=== PATIENT | male | born 1960 | race Caucasian/White ===

== ENCOUNTER 2022-06-18 08:43 | Day surgery (SDC) | payer OTHER ==
[2022-06-13 11:39] LABS: BASOPHILS % (AUTO) 0.6 % (0-1); LYMPHOCYTES # (AUTO) 1.8 X10'3 (1.1-4.8); LYMPHOCYTES % (AUTO) 34.8 % (21-51); MEAN CORPUSCULAR HEMOGLOBIN 31.2 PG (27.0-31.0); MEAN CORPUSCULAR HGB CONC 34.1 g/dL (33.0-36.5); MEAN CORPUSCULAR VOLUME 91.6 FL (78-98); MEAN PLATELET VOLUME 8.9 FL (7.4-10.4); MONOCYTES # (AUTO) 0.7 X10'3 (0-0.9); MONOCYTES % (AUTO) 12.9 % (2-12); NEUTROPHILS # (AUTO) 2.6 X10'3 (1.8-7.7); NEUTROPHILS % (AUTO) 50.7 % (42-75); PRE OP HEMOGLOBIN 14.3 g/dL (14.0-17.9); PRE OP PLATELET COUNT 247 X10'3 (140-440); RED BLOOD COUNT 4.59 X10'6 (4.70-6.10); RED CELL DISTRIBUTION WIDTH 14.3 % (11.5-14.5)
[2022-06-13 11:52] LABS: ALBUMIN 3.6 G/DL (3.4-5.0); ALBUMIN/GLOBULIN RATIO 0.9 (1.1-1.5); ALKALINE PHOSPHATASE 69 IU/L (46-116); BLOOD UREA NITROGEN 8 MG/DL (7-18); BUN/CREATININE RATIO 9.3 (5.4-32.0); CALCIUM 9.2 MG/DL (8.5-10.1); CHLORIDE 105 MMOL/L (99-107); CREATININE 0.86 MG/DL (0.60-1.10); PRE OP ALT 29 U/L (30-65); PRE OP ANION GAP 10 (8-16); PRE OP AST 17 U/L (10-37); PRE OP BILIRUB, TOTAL 0.4 MG/DL (0.0-1.0); PRE OP GLUCOSE 83 MG/DL (70-104); PRE OP POTASSIUM 3.8 MMOL/L (3.4-5.1); PRE OP SODIUM 141 MMOL/L (135-145); TOTAL CARBON DIOXIDE 25.6 MMOL/L (24-32); TOTAL PROTEIN 7.7 G/DL (6.4-8.2); eGFR 90 ML/MIN
[2022-06-18] VITALS (16 sets, daily range): BP systolic 110–134; BP diastolic 80–98
[~2022-06-18] VITALS: Ht 172.7 cm; Wt 95.6 kg
[~2022-06-18 08:43] MED LIST: ROPI0.2540 PO; ceFAZolin inj. 2,000 MG in dextrose 5%-water 100 ML IV ONE; famotidine 20mg tablet PO ONE; meperidine/PF 25mg/ml syringe IV PRN; morphine 2 MG/ML inj. syringe IV PRN; morphine 4 MG/ML inj SYRINge IV PRN; ondansetron/PF 4mg/2ml inj IV PRN; proCHLORperazine 10 MG/2 ml inj IV PRN; ringers solution, lacted 1,000 ML IV SCH
--- NOTE | 2022-06-18 09:00 | NUR ---
PT PREPARED FOR SURGERY. IV STARTED WITHOUT DIFFICULTY. PT STATES HE RECEIVED EDUCATIONAL MATERIAL ON HERNIA SURGERY AND USED HIBACLENS SOAP TO SHOWER WITH FOR 5 DAYS.
[2022-06-18] MEDS ORDERED: fentaNYL/PF 50MCG/1 ML 2ML syringe ONE (10:49)
[2022-06-18] MEDS ORDERED: LIDOcaine 1%/PF 5ML 10 MG/ML VIAL ONE (10:50)
[2022-06-18] MEDS ORDERED: propofol inj 20 ML IV ONE (10:50)
[2022-06-18] MEDS ORDERED: midazolam 1 mg/ML 2ml injection ONE (10:50)
[2022-06-18] MEDS ORDERED: LIDOcaine 1% 30ml preserv. free vial ONE (11:07)
[2022-06-18] MEDS ORDERED: BUPIVACAINE liposomal/PF 13.3 MG/ML vial IM ONE (11:07)
[2022-06-18] MEDS ORDERED: BUPIVAcaine/PF 2.5mg/ml (0.25%) 10ml vial ONE (11:07)
[2022-06-18] MEDS ORDERED: rocuronium 10mg/ml inj IV ONE (11:10)
--- NOTE | 2022-06-18 11:10 | NUR ---
PT STATES HE HAS BEEN DIAGNOSED WITH SLEEP APNEA BUT DOES NOT USE A CPAP MACHINE
[2022-06-18] MEDS ORDERED: desflurane 240ml liquid inh. IH ONE (11:11)
[2022-06-18] MEDS ORDERED: neostigmine methylsulfate 1 MG/ML 10ml vial ONE (11:11)
[2022-06-18] MEDS ORDERED: glycopyrrolate 0.2mg/ml inj ONE (11:11)
[2022-06-18] MEDS ORDERED: dexamethasone sod phosphate 4mg/ml inj. ONE (11:23)
[2022-06-18] MEDS ORDERED: ondansetron/PF 4mg/2ml inj ONE (11:23)
[2022-06-18] MEDS ORDERED: ketorolac trometh. 30mg/ml inj. ONE (11:23)
[2022-06-18] MEDS ORDERED: ePHEDrine 50MG/ML INJ. ONE (11:30)
[2022-06-18] MEDS ORDERED: oxyCODONE/APAP 5-325mg tablet PO PRN (12:15)
--- NOTE | 2022-06-18 12:30 | NUR ---
Received from OR via [facility], accompanied by Anesthesiologist DR BEJARANO and report given by Anesthesiolgist. PT IS GROGGY BUT RESPONDS TO VERBAL STIMULI. ABLE TO BENTLEY, AND ANSWERS QUESTIONS APPROPRIATLLY. PT PLACED ON BEDSIDE MONITOR, VSS. PT IN SR WITH RATE IN 90'S. PT RECEIVING 10L O2 TO MASK AND TOLERATING WELL WITH O2 SAT >96%, WILL TITRATE DOWN PT TOLERATES. PT HAS 20G PIV TO LEFT HAND WITH LR INFUSING ORDERES. PT HAS ABD BINDER IN PLACE. BAND AIDS TO MID ABD HORIZONTALLY, ALL ARE CDI. PT DENIES PAIN AT THIS TIME, WILL CONTINUE TO ASSESS
--- NOTE | 2022-06-18 15:30 | NUR ---
ALL DISCHARGE CRITERIA HAS BEEN MET. VSS, PAIN AT A TOLERABLE LEVEL AND ABLE TO SAFELY AMBULATE AND TRANSFER SELF. IV TAKEN OUT WITHOUT ANY COMPLICATIONS. ALL DISCHARGE INSTRUCTIONS COVERED WITH PATIENT AND ALL QUESTIONS ANSWERED. PATIENT TAKEN OUT VIA WHEELCHAIR TO PERSONAL VEHICLE WHERE DROVE PATIENT HOME.
== END 2022-06-18 15:24 | disposition home or self-care (01) ==
LOC: PAS 08:43
PROVIDERS: ATTEND Surgery
DX: K42.9 Umbilical hernia without obstruction or gangrene (principal); Z79.899 Other long term (current) drug therapy; Z98.890 Other specified postprocedural states; Z87.891 Personal history of nicotine dependence; G47.30 Sleep apnea, unspecified
CPT/HCPCS: 36415; 49652; 64488; 80053; 82948; 85025; 87811; 93005; C1781; C9290; J0690; J1100; J1885; J2250; J2405; J2704; J2710; J3010; J3490; J7030; J7060; J7120; S2900; Z7506; Z7508; Z7512; A4215; A4615; A4618; A6402